=== PATIENT | male | born 1985 | race Caucasian/White ===

== ENCOUNTER 2022-06-05 12:11 | Day surgery (SDC) | payer OTHER ==
[~2022-06-05] VITALS: Ht 180.3 cm; Wt 104.4 kg
[2022-06-05 12:38] VITALS: BP 132/97; PULSE 88; TEMP 97.8
--- NOTE | 2022-06-05 13:00 | NUR ---
The nurse attempted to complete the patient's med rec upon admission but was unable to do so as the patient did not bring a list in and does not know the names of his medication. He states he "stopped all medications a week ago". The nurse will continue to try and find out the patient's home medications so his med rec can be completed.
[2022-06-05] MEDS ORDERED: CELEBREX 200MG200 MG PO (13:46)
[2022-06-05] MEDS ORDERED: BUSPAR10 MG PO (13:46)
[2022-06-05] MEDS ORDERED: COLESTID 1GM1 G PO (13:47)
[2022-06-05] MEDS ORDERED: MOTRIN 800800 MG/TAB PO (13:48)
[2022-06-05] MEDS ORDERED: PRIL40 PO (13:49)
[2022-06-05] MEDS ORDERED: VIAGRA100 M1 PO (13:50)
--- NOTE | 2022-06-05 13:51 | NUR ---
The patient's med rec was completed to the best of the nurse's ability from home med list on the patient's procedure orders.
[2022-06-05 14:25] VITALS: BP 107/79; PULSE 68; TEMP 98.3
[2022-06-05 14:40] VITALS: BP 124/83; PULSE 64
[2022-06-05 14:55] VITALS: BP 120/84; PULSE 64
--- NOTE | 2022-06-05 15:00 | NUR ---
1425 AWAKE, ALERT. AMBULATES FROM CART TO RECLINER. SEATED IN RECLINER WITH FEET ELEVATED. PATIENT DENIES NAUSEA, PAIN OR DYSPHAGIA. 1435 TOLERATES PO WATER WITHOUT NAUSEA. REFUSES SNACK. 1440 DR. DUPREE HERE TO VISIT WITH PATIENT. 1445 DISCHARGE INSTRUCTIONS REVIEWED WITH PATIENT VERBALIZING UNDERSTANDING. COPY OF INSTRUCITONS AND EDUCATIONAL MATERIALS PROVIDED IN [employer]. 1455 DRESSES SELF.
== END 2022-06-05 15:00 | disposition home or self-care (01) ==
LOC: SDCO 12:11
DX: K21.00 Gastro-esophageal reflux disease with esophagitis, without bleeding (principal); K44.9 Diaphragmatic hernia without obstruction or gangrene; R19.7 Diarrhea, unspecified; F17.210 Nicotine dependence, cigarettes, uncomplicated
CPT/HCPCS: J2704; J7120